=== PATIENT | male | born 1985 | race Caucasian/White ===

== ENCOUNTER 2022-12-30 11:10 | Outpatient (OUT) | payer SELFPAY ==
--- NOTE | 2022-12-30 11:17 | XR_ITS ---
The [address] [address] Patient Name: SHAILA JUDGE MRN: [id number] date: 1985 Sex: M Assigned Patient Location: RAD Current Patient Location: RAD Accession/Order Number: [id number] Exam Date: 12/30/2022 11:23 Report Date: 12/30/2022 15:03 At the request of: CYNTHIA WALTERS Procedure: XR foot RT min 3V EXAM: XR foot RT min 3V HISTORY: Right foot pain M79.671 COMPARISON: None. TECHNIQUE: 3 views of the right foot were obtained. FINDINGS: There is no evidence of an acute fracture or dislocation. The joint spaces are intact throughout. No abnormal soft tissue calcification is present. Soft tissue swelling of the foot is noted. XR/XR foot RT min 3V IMPRESSION: No acute fracture or dislocation. Soft tissue swelling of the foot is noted. Electronically authenticated by: ORION BLACK Date: 12/30/2022 15:03
== END 2022-12-30 11:11 | disposition home or self-care (01) ==
PROVIDERS: PCP Family Medicine; Visit Provider Family Medicine
DX: M79.671 Pain in right foot (principal)
CPT/HCPCS: 73630